=== PATIENT | male | born 1995 | race Caucasian/White ===

== ENCOUNTER 2017-09-12 19:04 | Emergency (ER) | payer OTHER ==
[2017-09-12 19:21] VITALS: RESP 16
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
[2017-09-12 19:43] LABS: Basophils # (A) 0.1 k/uL (0-0.2); Basophils % (A) 1 %; CH 29.3; CHCM 34.6; Eosinophils # (A) 0.2 k/uL (0-0.7); Eosinophils % (A) 1 %; HCT 45.4 % (39.0-53.0); HDW 2.81; HGB 15.3 gm/dL (13.0-17.5); Luc % (Auto) 2; Lymphocytes # (A) 2.4 k/uL (1.0-4.8); Lymphocytes % (A) 22 %; MCH 28.6 pg (25.0-35.0); MCHC 33.6 g/dL (31.0-37.0); Mean Platelet Volume 6.7; Monocytes # (A) 0.4 k/uL (0-1.0); Monocytes % (A) 4 %; Neutrophils # (A) 7.7 k/uL (1.3-7.7); Neutrophils % (A) 70 %; RBC 5.34 m/uL (4.30-5.90); RDW 12.8 % (11.5-15.5)
[2017-09-12 19:53] LABS: ALT 52 U/L (21-72); AST 39 U/L (17-59); Alkaline Phosphatase 74 U/L (38-126); Anion Gap 13 mmol/L; Blood Urea Nitrogen 14 mg/dL (9-20); Calcium 9.8 mg/dL (8.4-10.2); Carbon Dioxide 27 mmol/L (22-30); Chloride 103 mmol/L (98-107); Glucose 126 mg/dL (74-99); Non-African American GFR(MDRD) >60 (>60 ml/min/1.73 sqM); Potassium 4.2 mmol/L (3.5-5.1); Sodium 143 mmol/L (137-145); Total Bilirubin 0.4 mg/dL (0.2-1.3); Total Protein 7.8 g/dL (6.3-8.2)
[2017-09-12 20:05] LABS: INR 1.1 (<1.2); Partial Thromboplastin Time 24.9 sec (22.0-30.0); Prothrombin Time 10.4 sec (9.0-12.0)
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
[2017-09-12 20:32] VITALS: BP 166/83; PULSE 112; TEMP 98.2
== END 2017-09-12 20:40 | disposition home or self-care (01) ==
LOC: EC 19:04
DX: S00.31XA Abrasion of nose, initial encounter (principal); R10.819 Abdominal tenderness, unspecified site; M79.662 Pain in left lower leg; M79.661 Pain in right lower leg; R07.89 Other chest pain; Z88.6 Allergy status to analgesic agent; Z88.8 Allergy status to other drugs, medicaments and biological substances; V43.62XA Car passenger injured in collision with other type car in traffic accident, initial encounter; Y92.410 Unspecified street and highway as the place of occurrence of the external cause
CPT/HCPCS: 36415; 80053; 85025; 85610; 85730; 71020; 73590; 74177; 99284; Q9967